=== PATIENT | female | born 1985 | race American Indian/Alaskan Native ===

== ENCOUNTER 2019-08-31 17:42 | Emergency (ER) | payer BC ==
[2019-08-31 18:39] VITALS: BP 145/84
--- NOTE | 2019-08-31 18:41 | Emergency Department Report ---
Chief Complaint: Dental/Oral Stated Complaint: TOOTHACHE Time Seen by Provider: 08/31/19 18:36 - HPI History of Present Illness: This is a 34 y.o. F. that presents to the ER with left sided dental pain for 2 days. Patient reports prior pain and follow with dentist but unable to get relief due to multiple surgery resulting in metal plate. States dentist states unable to pull the 2 broken teeth due to metal plate. States every so often gingival swelling and severe pain. Taking NSAIDs without relief. Patient denies any facial swelling. Denies any fever, chills, headache, nausea, vomiting, chest pain or SOB. Denies any other complaints. Denies any allergies. - ROS Review of Systems: Review of Systems: ROS: Stated complaint: left sided dental pain Other details as noted in HPI Comment: All other systems reviewed and negative Constitutional: denies: chills, fever HEENT: left sided upper dental pain Respiratory: denies: cough, shortness of breath. Cardiovascular: denies: chest pain Gastrointestinal: denies: nausea, vomiting Musculoskeletal: denies: myalgia - Exam Vital Signs: Vital Signs 08/31/19 18:36 Temperature 98.1 F Pulse Rate 92 H Respiratory 18 Rate Blood Pressure 145/84 O2 Sat by Pulse 100 Oximetry Physical Exam: - General Limitations: No Limitations General appearance: alert, in no apparent distress, obese ENT exam: Present: #14 & #15 partial tooth, tenderness on palpation, gingival swelling. No palpated abscess or cyst pockets. Neck exam: Present: normal inspection Respiratory exam: Present: normal lung sounds bilaterally. Absent: respiratory distress, wheezes, rales, rhonchi, stridor Cardiovascular Exam: Present: regular rate, normal rhythm Extremities exam: Present: normal inspection. Absent: pedal edema, calf tenderness Neurological exam: Present: alert, oriented X3 Psychiatric exam: Present: normal affect, normal mood Skin exam: Present: warm, dry, intact, normal color MSE screening note: Focused history and physical exam performed. Due to findings the following was ordered: ED Medical Decision Making - Medical Decision Making This is a 34-year-old female that presents with left sided dental pain. Patient is stable was examined by me. She is in no acute distress. Vitals are normal. There are 2 broken tooth #14 & #15 with gingival swelling, tenderness, no palpated abscess or cyst pockets. There are no facial swelling to concern of cellulitis. Patient is drinking as usual in ER. Toothache. Start magic mouthwash, tramadol, amoxicillin, and naproxen. Follow-up with a dentist in 3-5 days or if symptoms worsen and continue return to emergency room as soon as possible. At time of discharge, the patient does not seem toxic or ill in appearance. No acute signs of distress noted. Patient agrees to discharge treatment plan of care. No further questions noted by the patient. ED Disposition for MSE Clinical Impression: Toothache Disposition: TO HOME OR SELFCARE Is pt being admited?: No Condition: Stable Instructions: Toothache (ED) Prescriptions: Nystas/Diphen/Xyl Visc/Mylanta [Magic Mouthwash] 15 ml MM Q4H PRN #50 ml PRN Reason: Pain , Severe (7-10) Naproxen [Naprosyn] 500 mg PO TID PRN #20 tablet PRN Reason: Pain , Severe (7-10) Amoxicillin [Trimox CAP] 500 mg PO BID #14 capsule Acetaminophen/Codeine [Tylenol /Codeine # 3 tab] 1 tab PO Q6H PRN #12 tab PRN Reason: Pain , Severe (7-10) Referrals: [facility] [Outside] - 3-5 Days [facility] [Outside] - 3-5 Days Forms: Work/School Release Form(ED) Time of Disposition: 20:03
== END 2019-08-31 20:10 | disposition home or self-care (01) ==
LOC: ED 17:42
DX: K08.89 Other specified disorders of teeth and supporting structures (principal)
CPT/HCPCS: 99282

== ENCOUNTER 2021-10-07 13:41 | Emergency (ER) | payer BC ==
[2021-10-07] MEDS ORDERED: ACETAMINOPHEN 325 MG TAB PO ONE (15:53)
--- NOTE | 2021-10-07 16:28 | XRay Report ---
CHEST 2 VIEWS INDICATION / CLINICAL INFORMATION: cough, fever x 7days. COMPARISON: None available. FINDINGS: SUPPORT DEVICES: None. HEART / MEDIASTINUM: No significant abnormality. LUNGS / PLEURA: Patchy bibasilar airspace opacities, suspicious for multifocal pneumonia. No focal co nsolidation. No pneumothorax. ADDITIONAL FINDINGS: No significant additional findings. IMPRESSION: 1. Mild patchy/streaky airspace opacities involving the bilateral lung bases, suspicious for multifo yonathan pneumonia. Pattern would be most consistent with an atypical or viral etiology. Signer Name: Cal Joel MD Signed: 10/07/2021 4:24 PM Workstation Name: [email or web address]
--- NOTE | 2021-10-07 16:44 | Emergency Department Report ---
- General Chief Complaint: Headache Stated Complaint: BODY ACHES Time Seen by Provider: 10/07/21 15:53 Source: patient Mode of arrival: Ambulatory Limitations: No Limitations - History of Present Illness Initial Comments: Patient is a 36-year-old female presents emergency room complaints of URI symptoms that began 09/27/2021. She has associated cough, shortness of breath chills, generalized body aches, fever, diarrhea. She denies any vomiting, chest pain, leg swelling, calf pain, hemoptysis. She reports her significant other is positive for COVID-19. She states that she tested negative. She has not been vaccinated for COVID-19. She denies any past medical history or allergies to medications. She states that she uses Depo for control and has not missed any shots. - Related Data Previous Rx's Medication Instructions Recorded Last Taken Type Acetaminophen/Codeine [Tylenol 1 tab PO Q6H PRN #12 tab 08/31/19 Unknown Rx /Codeine # 3 tab] Amoxicillin [Trimox CAP] 500 mg PO BID #14 capsule 08/31/19 Unknown Rx Naproxen [Naprosyn] 500 mg PO TID PRN #20 tablet 08/31/19 Unknown Rx Nystas/Diphen/Xyl Visc/Mylanta 15 ml MM Q4H PRN #50 ml 08/31/19 Unknown Rx [Magic Mouthwash] Acetaminophen/Codeine [Tylenol 1 tab PO Q6H PRN #12 tab 10/07/21 Unknown Rx /Codeine # 3 tab] Azithromycin [Zithromax TAB] 250 mg PO QDAY 5 Days #6 tablet 10/07/21 Unknown Rx Benzonatate [Tessalon Perles] 100 mg PO Q8HR PRN #12 capsule 10/07/21 Unknown Rx Dexamethasone 6 mg PO DAILY 7 Days #7 tab 10/07/21 Unknown Rx Allergies Allergy/AdvReac Type Severity Reaction Status Date / Time No Known Allergies Allergy Unverified 08/31/19 18:01 ED Review of Systems ROS: Stated complaint: BODY ACHES Other details as noted in HPI Comment: All other systems reviewed and negative ED Past Medical Hx - Surgical History Additional Surgical History: facial - Social History Smoking Status: Never Smoker Substance Use Type: Alcohol - Medications Home Medications: Home Medications Medication Instructions Recorded Confirmed Last Taken Type Acetaminophen/Codeine [Tylenol 1 tab PO Q6H PRN #12 tab 08/31/19 Unknown Rx /Codeine # 3 tab] Amoxicillin [Trimox CAP] 500 mg PO BID #14 capsule 08/31/19 Unknown Rx Naproxen [Naprosyn] 500 mg PO TID PRN #20 tablet 08/31/19 Unknown Rx Nystas/Diphen/Xyl Visc/Mylanta 15 ml MM Q4H PRN #50 ml 08/31/19 Unknown Rx [Magic Mouthwash] Acetaminophen/Codeine [Tylenol 1 tab PO Q6H PRN #12 tab 10/07/21 Unknown Rx /Codeine # 3 tab] Azithromycin [Zithromax TAB] 250 mg PO QDAY 5 Days #6 tablet 10/07/21 Unknown Rx Benzonatate [Tessalon Perles] 100 mg PO Q8HR PRN #12 capsule 10/07/21 Unknown Rx Dexamethasone 6 mg PO DAILY 7 Days #7 tab 10/07/21 Unknown Rx ED Physical Exam - General Limitations: No Limitations General appearance: alert, in no apparent distress - Head Head exam: Present: atraumatic, normocephalic - Eye Eye exam: Present: normal appearance - ENT ENT exam: Present: mucous membranes moist - Respiratory Respiratory exam: Present: normal lung sounds bilaterally. Absent: respiratory distress, wheezes, rales, rhonchi, stridor, chest wall tenderness, accessory muscle use, decreased breath sounds, prolonged expiratory - Cardiovascular Cardiovascular Exam: Present: regular rate, normal rhythm, normal heart sounds. Absent: systolic murmur, diastolic murmur, rubs, gallop - Neurological Exam Neurological exam: Present: alert, oriented X3 - Psychiatric Psychiatric exam: Present: normal affect, normal mood - Skin Skin exam: Present: warm, dry, intact ED Course Vital Signs 10/07/21 10/07/21 14:05 17:35 Temperature 100.6 F H 99.9 F H Pulse Rate 108 H 101 H Respiratory 18 22 Rate Blood Pressure 121/83 Blood Pressure 120/82 [Right] O2 Sat by Pulse 99 99 Oximetry ED Medical Decision Making - Lab Data Vital Signs 10/07/21 10/07/21 14:05 17:35 Temperature 100.6 F H 99.9 F H Pulse Rate 108 H 101 H Respiratory 18 22 Rate Blood Pressure 121/83 Blood Pressure 120/82 [Right] O2 Sat by Pulse 99 99 Oximetry - Radiology Data Radiology results: report reviewed Ordering Physician: FADY HARDIN Date of Service: 10/07/21 Procedure(s): XR chest routine 2V Accession Number(s): [id number] cc: FADY HARDIN Fluoro Time In Minutes: CHEST 2 VIEWS INDICATION / CLINICAL INFORMATION: cough, fever x 7days. COMPARISON: None available. FINDINGS: SUPPORT DEVICES: None. HEART / MEDIASTINUM: No significant abnormality. LUNGS / PLEURA: Patchy bibasilar airspace opacities, suspicious for multifocal pneumonia. No focal consolidation. No pneumothorax. ADDITIONAL FINDINGS: No significant additional findings. IMPRESSION: 1. Mild patchy/streaky airspace opacities involving the bilateral lung bases, suspicious for multifocal pneumonia. Pattern would be most consistent with an atypical or viral etiology. Signer Name: Cal Lubin MD Signed: 10/07/2021 4:24 PM Workstation Name: [employer] Transcribed By: SB Dictated By: CAL LUBIN MD Electronically Authenticated By: CAL LUBIN MD Signed Date/Time: 10/07/211623 DD/ 22 TD/TT: - Medical Decision Making Patient is a 36-year-old female presents emergency room complaints of URI symptoms that began 09/27/2021. She has associated cough, shortness of breath chills, generalized body aches, fever, diarrhea. She denies any vomiting, chest pain, leg swelling, calf pain, hemoptysis. She reports her significant other is positive for COVID-19. She states that she tested negative. She has not been vaccinated for COVID-19. She denies any past medical history or allergies to medications. She states that she uses Depo for control and has not missed any shots. vitals with fever and mild tachycardia which improved upon repeat. no hypoxia. pt was ambulated in the ED by Vigilos and was able to maintain oxygen saturation of 96% or greater on room air. breath sounds are clear bilaterally no w/r/r. xr chest: 1. Mild patchy/streaky airspace opacities involving the bilateral lung bases, suspicious for multifocal pneumonia. Pattern would be most consistent with an atypical or viral etiology. Given that patient has had positive sick contact with COVID-19 and she has not been vaccinated, this likely could represent COVID-19 pneumonia. Discussed all findings with patient. Advised patient please take medication as prescribed. Increase your fluid intake. Follow-up with a primary care doctor for reexamination. Return to emergency room for any new or worsening symptoms. Critical care attestation.: If time is entered above; I have spent that time in minutes in the direct care of this critically ill patient, excluding procedure time. ED Disposition Clinical Impression: Opacities of both lungs present on chest x-ray, Suspected COVID-19 virus infection Disposition: 01 HOME / SELF CARE / HOMELESS Is pt being admited?: No Does the pt Need Aspirin: No Condition: Stable Instructions: COVID-19, Community-Acquired Pneumonia, Adult, [id number] Additional Instructions: please take medication as prescribed. Increase your fluid intake. Follow-up with a primary care doctor for reexamination. Return to emergency room for any new or worsening symptoms. Prescriptions: Dexamethasone 6 mg PO DAILY 7 Days #7 tab Benzonatate [Tessalon Perles] 100 mg PO Q8HR PRN #12 capsule PRN Reason: cough Acetaminophen/Codeine [Tylenol /Codeine # 3 tab] 1 tab PO Q6H PRN #12 tab PRN Reason: Pain , Severe (7-10) Azithromycin [Zithromax TAB] 250 mg PO QDAY 5 Days #6 tablet Referrals: PRIMARY MD JENI [Primary Care Provider] - 3-5 Days STEFANI TUCKER MD [Staff Physician] - 3-5 Days [facility] [Provider Group] - 3-5 Days Forms: Work/School Release Form(ED) Time of Disposition: 16:43 Print Language: BENGALI
[2021-10-07 17:37] VITALS: BP 120/82
== END 2021-10-07 17:40 | disposition home or self-care (01) ==
LOC: ED 13:41
DX: R91.8 Other nonspecific abnormal finding of lung field (principal); R05.9 Cough, unspecified; R06.02 Shortness of breath; Z20.822 Contact with and (suspected) exposure to COVID-19; Z72.89 Other problems related to lifestyle
CPT/HCPCS: 71046; 99283

== ENCOUNTER 2021-10-25 13:16 | Emergency (ER) | payer BC ==
[2021-10-25 15:47] VITALS: BP 128/81
--- NOTE | 2021-10-25 16:16 | Emergency Department Report ---
Minor Respiratory - HPI Stated Complaint: COLD SYM Duration: 2 weeks Minor Respiratory: Yes Sore Throat, Yes Able to Tolerate Fluids, Yes Cough, No Chest Pain, No Shortness of Breath, No Fever Other History: 36-year-old -[place] female who has been suffering from COVID since October 07. Patient states she is still having shortness of breath headaches cough and sore throat. Patient reports she has been taking [id number] medication without much relief. She denies any fever chills no nausea no vomiting. 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 ED Review of Systems ROS: Stated complaint: COLD SYM Other details as noted in HPI ED Past Medical Hx - Surgical History Additional Surgical History: facial - Social History Smoking Status: Never Smoker Substance Use Type: Alcohol - Medications Home Medications: Home Medications Medication Instructions Recorded Confirmed Last Taken Type Acetaminophen/Codeine [Tylenol 1 tab PO Q6H PRN #12 tab 08/31/19 Unknown Rx /Codeine # 3 tab] Amoxicillin [Trimox CAP] 500 mg PO BID #14 capsule 08/31/19 Unknown Rx Naproxen [Naprosyn] 500 mg PO TID PRN #20 tablet 08/31/19 Unknown Rx Nystas/Diphen/Xyl Visc/Mylanta 15 ml MM Q4H PRN #50 ml 08/31/19 Unknown Rx [Magic Mouthwash] Acetaminophen/Codeine [Tylenol 1 tab PO Q6H PRN #12 tab 10/07/21 Unknown Rx /Codeine # 3 tab] Azithromycin [Zithromax TAB] 250 mg PO QDAY 5 Days #6 tablet 10/07/21 Unknown Rx Benzonatate [Tessalon Perles] 100 mg PO Q8HR PRN #12 capsule 10/07/21 Unknown Rx Dexamethasone 6 mg PO DAILY 7 Days #7 tab 10/07/21 Unknown Rx Minor Respiratory Exam - Exam General: Vital signs noted. No distress. Alert and acting appropriately. Ear: Neither TM Bulge, Neither TM Erythema, Neither EAC Pain, Neither EAC Discharge Neck: Yes Supple, No Adenopathy Lungs: Yes Good Air Exchange, No Wheezes, No Ronchi, No Stridor, No Cough, No Labored Respirations, No Retractions, No Use of Accessory Muscles, No Other Abnormal Lung Sounds Heart: Yes Regular, No Murmur Abdomen: Yes Normal Bowel Sounds, No Tenderness, No Peritoneal Signs Skin: No Rash, No Edema Neurologic: Alert and oriented, no deficits. Musculoskeletal: Unremarkable. ED Medical Decision Making - Medical Decision Making 36-year-old -[place] female who has been suffering from COVID since October 07. Patient states she is still having shortness of breath headaches cough and sore throat. Patient reports she has been taking [id number] medication without much relief. She denies any fever chills no nausea no vomiting. 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 Discussed with patient that she most likely has COVID bella. Discussed with patient she may have shortness of breath and symptoms for 3 to 6 months. Braydon mmend patient to follow-up with her primary care provider. Recommend patient to continue with ibuprofen Tylenol [id number]-[id number] medications increase her fluid intake and rest. Critical care attestation.: If time is entered above; I have spent that time in minutes in the direct care of this critically ill patient, excluding procedure time. ED Disposition Clinical Impression: COVID-19 susan wilks manifesting chronic fatigue Disposition: 01 HOME / SELF CARE / HOMELESS Is pt being admited?: No Does the pt Need Aspirin: No Condition: Stable Instructions: Chronic Fatigue Syndrome Additional Instructions: Recommend to increase your fluids take [id number] medication ibuprofen Tylenol. Referrals: STEFANI TUCKER MD [Staff Physician] - 3-5 Days Forms: Work/School Release Form(ED) Time of Disposition: 16:21
== END 2021-10-25 16:34 | disposition home or self-care (01) ==
LOC: ED 13:16
DX: R53.83 Other fatigue (principal); U09.9 Post COVID-19 condition, unspecified; F10.20 Alcohol dependence, uncomplicated
CPT/HCPCS: 99282